=== PATIENT | male | born 1965 | race Caucasian/White ===

== ENCOUNTER 2024-09-06 10:47 | Outpatient (CLI) | payer OTHER, SELFPAY ==
--- NOTE | ~2024-09-06 | MR_ITS ---
MRI of the right hip Clinical history: Right hip osteonecrosis Technique: Coronal T1-weighted, T2-weighted, and proton-density fat-sat images, and axial T1-weighted and proton-density fat-sat images were acquired through the pelvis. Coronal T2-weighted images and c oronal, axial, and sagittal proton-density fat-sat images were acquired through the right hip. Findings: There is no acute fracture or definite avascular necrosis of either hip. 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 There is no focal subchondral reactive marrow edema at the s uperior aspect of the right femoral head. No definite insufficiency fracture evident. Small to modera te joint effusion is present probably reactive. There is mild/moderate diffuse chondral thinning of t he left hip joint, especially medially. Visualized musculature about the pelvis and right hip is unremarkable. No muscle atrophy or edema see n. Visualized tendons are intact. No soft tissue mass or fluid collection evident. IMPRESSION: Severe degenerative change of the right hip joint with probable subchondral reactive marrow edema at the superior aspect of the right femoral head. No definite AVN or subchondral insufficiency fracture. Mild to moderate right hip joint effusion, likely reactive. Mild to moderate degenerative change of the left hip joint. Reviewed, dictated and finalized at location M. IMPRESSION: Severe degenerative change of the right hip joint with probable subchondral bret ctive marrow edema at the superior aspect of the right femoral head. No definit e AVN or subchondral insufficiency fracture. Mild to moderate right hip joint effusion, likely reactive. Mild to moderate degenerative change of the left hip joint.
--- OUTSIDE RECORDS SUMMARY | 2024-09-06 11:26 | XMS_ITS | Encounter Summary ---
Author Organization [facility] Care Team Providers Care Clinical Data Associate Name Role Phone Zion Espinal MD Primary Care Provid er Zion Espinal MD Primary Care Provid er Zion Espinal MD Unavailable + [phone] Encounter Details Date Type Department Care Team (Latest Contact Info) Description 01/31/2017 Orders Only [facility] ProviderMarck MD [address] [place] [id number] Social History Tobacco Use Types Packs/Day Years Used Date Smoking Tobacco: Never Assessed Sex and Gender Information Value Date Recorded Sex Assigned at Not on file 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 us Historical Provider Final Res ult documented in this encounter Visit Diagnoses Not on filedocumented in this encounter Additional Health Concerns Infection Onset Date Last Indicated Resolved Time COVID: Suspected 08/11/2020 08/11/2020 08/13/2020 9:53 AM CDT COVID19 08/11/2020 08/11/2020 08/25/2020 3:05 AM CDT COVID: Recovered Comment:Added based on recent COVID infection. 08/25/2020 08/25/2020 12/23/2020 3:05 AM C DT COVID: Suspected 10/11/2021 10/11/2021 10/11/2021 3:01 PM CDT COVID: Suspected 08/05/2022 08/05/2022 08/05/2022 2:05 PM CDT documented as of this encounter Care Teams Clinical Data Associate Relationship Specialty Start Date End Date Zion Espinal MD [address] [place] [address] PCP - General Family Medicine 07/15/18 08/26/18 Zion Espinal MD [address] [facility] [place] [address] PCP - General Family Medicine 08/27/18 Zion Espinal MD [address] [place] [address] Family Medicine 08/27/18 04/04/19 documented as of this encounter
--- OUTSIDE RECORDS SUMMARY | 2024-09-06 11:26 | XMS_ITS | Encounter Summary ---
Author Organization [facility] Care Team Providers Care Electrical Contacts Adjuster Name Role Phone Zion Espinal MD Primary Care Provid er Zion Espinal MD Primary Care Provid er Zion Espinal MD Unavailable +- [phone] Encounter Details Date Type Department Care Team (Latest Contact Info) Description 06/17/2016 Orders Only [facility] Provider, MD Marck [address] [place] [id number] Social History Tobacco Use Types Packs/Day Years Used Date Smoking Tobacco: Never Assessed Sex and Gender Information Value Date Recorded Sex Assigned at Not on file 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 us Historical Provider Final Res ult * PROCEDURE - RESULT (06/17/2016 12:00 AM CDT) Narrative 06/17/2016 12:00 AM CDT Ordered by an unspecified provider. us Historical Provider Final Res ult * CARDIOLOGY REPORT (06/17/2016 12:00 AM CDT) Anatomical Region Laterality Modality Other Narrative 06/17/2016 12:00 AM CDT Ordered by an unspecified provider. Historical Provider [facility] [place] Final Result documented in this encounter Visit Diagnoses Not [...] documented as of this encounter Care Teams Electrical Contacts Adjuster Relationship Specialty Start Date End Date Zion Espinal MD [address] [place] [address] PCP - General Family Medicine 07/15/18 08/26/18 Zion Espinal MD [address] [place] [address] PCP - General Family Medicine 08/27/18 Zion Espinal MD [address] [place] [address] Family Medicine 08/27/18 04/04/19 documented as of this encounter
--- OUTSIDE RECORDS SUMMARY | 2024-09-06 11:26 | XMS_ITS | Referral Summary ---
Author Organization [address] Address [address] [address] Care Team Providers Care System Designer Name Role Phone Zion Espinal MD Primary Care Provid er Encounters Date Type Department Care Team Description 08/02/2024 9:02 AM CDT - 08/02/2024 9:54 AM CDT [facility] Emergency Department [address] [place] [address] Naveen Shah DO Muscle strain of right thigh (Primary Dx) Discharge Disposition: Discharge to home or self care 06/18/2024 Results Follow-Up [facility] [address] [phone] Maria Luisa Gore PA Drugs of Abuse Screen, Urine with Reflex Confirmation, Hemoglobin A1c, T3, free, Additional followed-up results: 7 06/18/2024 11:35 AM CDT [facility] [address] [place] [id number] Chronic right-sided thoracic back pain; Chronic right-sided low back pain without sciatica; Chronic midline low back pain without sciatica; High risk medication use; Type 2 diabetes mellitus with hyperlipidemia (HCC); Hypogonadism in male; Screening PSA (prostate specific antigen); Erectile dysfunction, unspecified erectile dysfunction type; Screening for blood disease; Screening, ischemic heart disease 06/18/2024 Letter (Out) [address] [phone] 06/18/2024 Letter (Out) [address] [phone] 06/17/2024 3:00 PM CDT Office Visit [address] [phone] Maria Luisa Gore PA Seborrheic keratosis (Primary Dx); Change in multiple nevi; Hypogonadism in male; Erectile dysfunction, unspecified erectile dysfunction type; Type 2 diabetes mellitus with hyperlipidemia (HCC); Hypoglycemia due to type 2 diabetes mellitus (HCC); Primary osteoarthritis of right knee; Mid back pain on right side; Chronic right-sided thoracic back pain; Chronic right-sided low back pain without sciatica; Chronic midline low back pain without sciatica; Chronic pain syndrome; High risk medication use; Screening for blood disease; Screening PSA (prostate specific antigen); Screening, ischemic heart disease from Last 3 Months Allergies Active Allergy Reactions Criticality Noted Date Comments Albuterol Other (See comments) Low 04/16/2022 Unable to urinate Atorvastatin Muscle pain Medium 06/01/2019 Carvedilol Dizziness Low 04/10/2009 Sildenafil Vision changes Medium 01/29/2023 Medications omeprazole 20 mg tablet,delayed release (DR/EC) 1 tablet (20 mg total) 2 (two) times a day Active cholecalciferol, vitamin D3, (VITAMIN D3 ORAL) Take 10,000 Units by mouth Active docosahexanoic acid/epa (FISH OIL ORAL) daily Active aspirin 81 mg chewable tablet 1 tablet (81 mg total) daily Active cetirizine (ZyrTEC) 10 mg tablet Take 1 tablet (10 mg total) by mouth daily Active bisacodyl EC (DULCOLAX EC) 5 mg EC tabletIndications: constipation Take 1 tablet (5 mg total) by mouth daily as needed for constipation Active fluticasone propionate (FLONASE) 50 mcg/actuation nasal spray SHAKE LIQUID AND USE 1 SPRAY IN EACH NOSTRIL TWICE DAILY 48 g 10/12/19 22 Active docusate sodium (COLACE) 100 mg capsule 1 capsule (100 mg total) 01/18/20 23 Active rosuvastatin (CRESTOR) 40 mg tablet Take 0.5 tablets (20 mg total) by mouth daily 45 tablet 3 08/07/19 24 Active testosterone enanthate, bulk, 100 % powder 0 04/01/20 24 Active amLODIPine-benazep riL (LOTREL 5-10) 5-10 mg per capsule TAKE 1 CAPSULE BY MOUTH DAILY 100 capsule 1 06/15/19 25 Active metFORMIN XR (GLUCOPHAGE XR) 500 mg 24 hr tabletIndications: Uncontrolled type 2 diabetes mellitus with hyperglycemia (HCC) TAKE 2 TABLETS BY MOUTH TWICE DAILY 360 tablet 06/15/19 25 Active testosterone cypionate (DEPO-TESTOTERONE) 100 mg/mL injectionIndicatio ns:Hypogonadism in male,High risk medication use Inject into the muscle as instructed every 14 (fourteen) days Active meloxicam (MOBIC) 15 mg tabletIndications: Primary osteoarthritis of right knee,Chronic right-sided thoracic back pain,Chronic right-sided low back pain without sciatica Take 1 tablet (15 mg total) by mouth daily 90 tablet 1 06/18/19 25 026 Active HYDROcodone-acetam inophen (NORCO) 5-325 mg per tabletIndications: Pain Take 1 tablet by mouth every 6 (six) hours as needed for pain 15 tablet 08/03/19 25 Active Active Problems Problem Noted Date Diagnosed Date Screening for colon cancer 12/25/2023 Family history of colon cancer 12/25/2023 Carpal tunnel syndrome 09/26/2023 Overview (09/26/2023): Oct 05, 2007 Entered By: SHILPI CHOWDHURY Comment: rt surgery for cts Hyperlipidemia 09/26/2023 Nevus, non-neoplastic 09/26/2023 Overview (09/26/2023): Oct 05, 2007 Entered By: SHILPI CHOWDHURY Comment: being followed by derm Nonallopathic lesion of upper extremities 2023 Osteoarthritis 09/26/2023 Overview (09/26/2023): Oct 05, 2007 Entered By: SHILPI CHOWDHURY Comment: lt shoulder ac joint Assessment & Plan (06/17/2024 7:08 PM CDT): Orders: meloxicam (MOBIC) 15 mg tablet; Take 1 tablet (15 mg total) by mouth daily Sensorineural hearing loss, bilateral 09/26/2023 Sensorineural hearing loss 09/26/2023 Overview (09/26/2023): NORMAL-TO MILD HF SnHL AD (3K,4K AND 8K Hz ONLY) // [id number]-GLHYOIRGCI SEVERE, NOTCH SHAPED HF SnHL ABOVE 1K Hz. LEFT EAR HEARING LOSS IS CONSISTENT WITH NOISE EXPOSURE -- SHOOTER'S EAR? ALL OTHERTEST RESULTS ARE WNL Tinnitus 09/26/2023 Primary hypertension 09/26/2023 Obstructive sleep apnea syndrome 09/26/2023 Overview (09/26/2023): Oct 05, 2007 Entered By: SHILPI CHOWDHURY Comment: uses cpap Controlled substance agreement signed 09/26/2023 Encounter for screening colonoscopy 02/04/2023 FHx: colon cancer 02/04/2023 Inadequately controlled diabetes mellitus 2021 PLMD (periodic limb movement disorder) Assessment & Plan (05/21/2024 9:12 AM CORPORATE SPECIALIST): Asymptomatic Assessment & Plan (05/08/2023 1:58 PM CORPORATE SPECIALIST): Asymptomatic Assessment & Plan (04/18/2022 9:12 AM CORPORATE SPECIALIST): Asymptomatic Assessment & Plan (04/19/2021 8:57 AM CORPORATE SPECIALIST): Currently asymptomatic Dyslipidemia 06/17/2016 Erectile dysfunction 06/17/2016 Assessment & Plan (06/17/2024 7:08 PM CDT): Orders: Comprehensive metabolic panel; Future PSA screen; Future Gastro-esophageal reflux disease without esophag itis 06/17/2016 Obesity, unspecified 06/17/2016 Testicular hypofunction 06/17/2016 Low back pain 04/17/2016 Assessment & Plan (06/17/2024 7:08 PM CDT): Orders: Drugs of Abuse Screen, Urine with Reflex Confirmation; Future Assessment & Plan (06/17/2024 7:08 PM CDT): Orders: HYDROcodone-acetaminophen (NORCO) 5-325 mg per tablet; Take 1 tablet by mouth every 6 (six) hours as needed for pain (spinal stenosis) for up to 5 days meloxicam (MOBIC) 15 mg tablet; Take 1 tablet (15 mg total) by mouth daily Drugs of Abuse Screen, Urine with Reflex Confirmation; Future ANIRUDH (obstructive sleep apnea) 04/17/2016 Overview (01/26/2020): uses a CPAP, uses everynight Assessment & Plan (05/21/2024 9:12 AM CORPORATE SPECIALIST): Due to ongoing symptoms, the patient will continue CPAP at 13 cm water pressure. I have ordered an F30 mask. [facility] adapt Assessment & Plan (05/08/2023 1:58 PM CORPORATE SPECIALIST): Due to continued symptoms, the patient will continue CPAP at 13 cm water pressure. I have ordered a full set of supplies. [facility] [place] adapt Assessment & Plan (04/18/2022 9:12 AM CORPORATE SPECIALIST): Will continue CPAP therapy at 13 cm water pressure. I did order a full set of supplies and a new nasal pillow mask without prongs. [facility] [place] adapt Assessment & Plan (04/19/2021 8:58 AM CORPORATE SPECIALIST): Patient will continue with CPAP therapy at 13 cm water pressure. Patient denied need for supplies. [facility] [place] company provider Plus. The patient was offered a mild sleep aid to see if this may help with his daytime fatigue by helping him to sleep more fully throughout the night, the patient declined at this time. Patient is benefitting from CPAP Benign essential hypertension 03/11/2016 Resolved Problems Problem Noted Date Diagnosed Date Resolved Date Cellulitis of left eyelid 03/11/2016 Immunizations Immunization Administration Dates Next Due Hep A, Adult 01/04/1998,02/16/1997 Influenza LAIV (Nasal) 04/17/2004 Influenza, Quadrivalent, Spl it, Preservative Free, Intramuscular 03/06/2021,01/26/2020 Influenza, Trivalent, IM (MDV) 01/22/2013 Influenza, Unspecified 02/09/2024(Deferr ed: Patient Refused),01/06/2024(Deferred: Patient decision),01/06/2024(Deferred: Patient decision),01/29/2023(Deferred: Patient Refused),01/05/2023(Deferred: Patient decision),01/05/2023(Deferred: Patient decision),01/05/2022(Deferred: Patient Refused),03/07/2013,12/30/2008, 008 Influenza, Whole 01/31/2003, 2,01/23/2001,03/21,01/16/1999,01/13/1998,02/16/1997 Meningococcal Polysaccharide (Menomune) 03/07/1998,12/03/1991 OPV 07/06/1984 PPD TEST 08/03/2001,06/30/2000 Smallpox 06/06/1983 Td, Unspecified 10/28/2005 Td, adsorbed 01/01/1995 Tdap 02/20/2021,10/28/2005 Typhoid Live 01/04/1998,12/26/1994 Yellow Fever 03/07/1998 ZOSTER Recombinant 05/23/2021(Deferred: Patient Refused) Social History Tobacco Use Types Packs/Day Years Used Date Smoking Tobacco: Former Cigarettes Smokeless Tobacco: Never Comments:quit in 1989 Alcohol Use Standard Drinks/Week Comments Yes 0 (1 standard drink = 0.6 oz pur e alcohol) AUDIT-C Answer Date Recorded Q1: How often do you have a drink containing alc ohol? 2-4 times a month 06/17/2024 Q2: How many drinks containi ng alcohol do you have on a typical day when you are drinking? 3 or 4 06/17/2024 Q3: How often do you have si x or more drinks on one occasion? Never 06/17/2024 PHQ-2 Answer Date Recorded PHQ-2 Total Score (If total score is 3 or more points, staff should administer the PHQ-9) 0 06/17/2024 Personal Safety Answer Date Recorded Have you ever been in or are you currently in a harmful physical or emotional relationship or is someone making you feel afraid or unsafe? Denies 08/02/2024 Sex and Gender Information Value Date Recorded Sex Assigned at Not on file Legal Sex Male 7:48 PM CORPORATE SPECIALIST Gender Identity Not on file Sexual Orientation Not on file Last Filed Vital Signs Vital Sign Reading Time Taken Comments Blood Pressure 128/82 08/02/2024 9:45 AM CDT Pulse 61 08/02/2024 9:45 AM CDT Temperature 36.7 C (98.1 F) 08/02/2024 8:17 AM CDT Respiratory Rate 20 08/02/2024 9:45 AM CDT Oxygen Saturation 95% 08/02/2024 8:17 AM CDT Inhaled Oxygen Concentration - - Weight 121.7 kg (268 lb 4.8 oz) 08/02/2024 8:17 AM CDT Height 180.3 cm (5' 11) 08/02/2024 8:17 AM CDT Body Mass Index 37.42 08/02/2024 8:17 AM CDT Plan of Treatment Not on file Procedures Procedure Name Priority Date/Time Associated Diagnosis Comments D-DIMER, QUANTITATIVE STAT 08/02/2024 9:04 AM CDT EGFR Routine 06/18/2024 11:41 AM CDT Erectile dysfunction, unspecified erectile dysfunction type Type 2 diabetes mellitus with hyperlipidemia (HCC) LIPID PANEL Routine 06/18/2024 11:41 AM CDT Screening, ischemic heart disease COMPREHENSIVE METABOLIC PANEL Routine 06/18/2024 11:41 AM CDT Erectile dysfunction, unspecified erectile dysfunction type Type 2 diabetes mellitus with hyperlipidemia (HCC) CBC WITHOUT DIFFERENTIAL Routine 06/18/2024 11:41 AM CDT Screening for blood disease PSA SCREEN Routine 06/18/2024 11:41 AM CDT Screening PSA (prostate specific antigen) Erectile dysfunction, unspecified erectile dysfunction type TESTOSTERONE, TOTAL AND FREE, SERUM Routine 06/18/2024 11:41 AM CDT Hypogonadism in male THYROID FUNCTION CASCADE Routine 06/18/2024 11:41 AM CDT Hypogonadism in male T3, FREE Routine 06/18/2024 11:41 AM CDT Hypogonadism in male HEMOGLOBIN A1C Routine 06/18/2024 11:41 AM CDT Type 2 diabetes mellitus with hyperlipidemia (HCC) DRUGS OF ABUSE SCREEN, URINE WITH REFLEX CONFIRMATION Routine 06/18/2024 11:41 AM CDT Chronic right-sided thoracic back pain Chronic right-sided low back pain without sciatica Chronic midline low back pain without sciatica High risk medication use COLONOSCOPY 01/06/2024 8:53 AM CDT HM DIABETES EYE EXAM Routine 08/21/2023 ALBUMIN CREATININE RATIO, URINE Routine 08/02/2022 10:59 AM CDT Benign essential hypertension Dyslipidemia Gastro-esophageal reflux disease without esophagitis Testicular hypofunction Inadequately controlled diabetes mellitus (HCC) PLMD (periodic limb movement disorder) HEPATITIS C ANTIBODY Routine 06/08/2021 9:45 AM CORPORATE SPECIALIST Encounter for screening for other viral diseases from Last 3 Months or Most Recently Relevant to Health Maintenance Results * D-dimer, quantitative (08/02/2024 9:04 AM CDT) D-Dimer <270 <=499 ng/mL FEU Comment: Interpretive data FDA approved the D-dimer, in conjunction with a low or moderate pretest probability score, to exclude venous thromboembolic events (VTE) (PE and DVT) in outpatients when the D-dimer result is < 500 ng/ml FEU. Evidence supports using an age-adjusted D-dimer cut-off for outpatients older than 50 (age x 10) to improve specificity without sacrificing sensitivity. Example: age 68, VTE cut-off 680 ng/ml FEU. References; Schoutscot HT et al. Brit Med J. 2013;346:f2492. Stephanie et al. Annals Int Med. 2015;163:701-11. Current interpretive data was last revised on 2019. Testing performed by: [address] [address] Blood 08/02/2024 9:04 AM CDT 08/02/2024 9:07 AM CDT us Naveen Shah DO LAB BLOOD ORDERABLES Final Res ult [facility] [address] [facility] Department [place] [address] * Drugs of Abuse Screen, Urine with Reflex Confirmation (06/18/2024 11:41 AM CDT) Pathologist [facility] Amphetamine, ur Not Detected CutOff 500ng/mL Comment: Interpretive Data - Amphetamines: Samples containing greater than 500 ng/mL d-methamphetamine or other cross-reacting amphetamine compounds are reported as positive. Amphetamine immunoassays are subject to significant false positive rates due to cross-reactivity of non-amphetamine drugs. Confirmatory testing required for definitive results. Current Interpretive Data was last reviewed 2022. Testing performed by: [address] [address] Barbiturates, ur Not Detected CutOff 200ng/mL [facility] Comment: Interpretive Data - Barbiturates: Samples containing greater than 200 ng/mL secobarbital or other cross-reacting barbiturate compounds are reported as positive. False positive and false negative results are possible. Confirmatory testing required for definitive results. Current Interpretive Data was last reviewed 2022. Testing performed by: [address] [address] Benzodiazepines, ur Not Detected CutOff 100ng/mL [facility] Comment: Interpretive Data - Benzodiazepines: Samples containing greater than 100 ng/mL nordiazepam or other cross-reacting compounds are reported as positive. False positive and false negative results are possible. Confirmatory testing required for definitive results. Current Interpretive Data was last reviewed 2022. Testing performed by: [address] [address] Cannabinoids, ur Not Detected CutOff 50 ng/mL [facility] Comment: Interpretive Data - Cannabinoids: Samples containing greater than 50 ng/mL delta-9 THC -COOH or other cross- reacting compounds are reported as positive. False positive and false negative results are possible. Confirmatory testing required for definitive results. Current Interpretive Data was last reviewed 2022. Testing performed by: [address] [address] Cocaine, ur Not Detected CutOff 150ng/mL [facility] Comment: Interpretive Data - Cocaine: Samples containing greater than 150 ng/mL benzoylecgonine or other cross- reacting compounds are reported as positive. False positive and false negative results are possible. Confirmatory testing required for definitive results. Current Interpretive Data was last reviewed 2022. Testing performed by: [address] [address] Fentanyl, Ur Not Detected Cutoff 1 ng/mL [facility] Comment: Interpretive Data - Fentanyl: Samples containing greater than 1 ng/mL fentanyl or other cross-reacting fentanyl compounds are reported as positive. False positive and false negative results are possible. Confirmatory testing required for definitive results. Current Interpretive Data was last reviewed 2022. Testing performed by: [address] [address] Methadone, ur Not Detected CutOff 300ng/mL [facility] Comment: Interpretive Data - Methadone: Samples containing greater than 300 ng/mL d,l-methadone or other cross-reacting compounds are reported as positive. False positive and false negative results are possible. Confirmatory testing required for definitive results. Current Interpretive Data was last reviewed 2022. Testing performed by: [address] [address] Opiates, ur Not Detected CutOff 300ng/mL [facility] Comment: Interpretive Data - Opiates: Samples containing greater than 300 ng/mL morphine or other cross-reacting compounds are reported as positive. False positive and false negative results are possible. Confirmatory testing required for definitive results. Current Interpretive Data was last reviewed 2022. Testing performed by: [address] [address] Oxycodone, ur Not Detected CutOff 100ng/mL [facility] Comment: Interpretive Data - Oxycodone: Samples containing greater than 100 ng/mL oxycodone or other cross-reacting compounds are reported as positive. False positive and false negative results are possible. Confirmatory testing required for definitive results. Current Interpretive Data was last reviewed 2022. Testing performed by: [address] [address] Phencyclidine, ur Not Detected CutOff 25 ng/mL [facility] Comment: Interpretive Data - Phencyclidine: Samples containing greater than 25 ng/mL phencyclidine or other cross-reacting compounds are reported as positive. False positive and false negative results are possible. Confirmatory testing required for definitive results. Current Interpretive Data was last reviewed 2022. Testing performed by: [address] [address] Urine Creatinine 42 mg/dL [facility] Comment: Interpretive Data Urine Creatinine: < 10 mg/dL is extremely dilute = or > 10 but < 20 mg/dL is dilute = or > 20 mg/dL is normal Current Interpretive Data was last revised on 2017. Testing performed by: [address] [address] Urine 06/18/2024 11:4 1 AM CDT 06/18/2024 11:49 AM CDT Narrative [facility] - 06/18/2024 12:15 PM CDT Drug of Abuse screening is performed by immunoassay for medical purposes only. This is not to be used for Pain Management purposes. If Detected, confirmation testing will be performed for Amphetamines, Cocaine, Fentanyl, Methadone, Opiates, Oxycodone or Phencyclidine. us Maria Luisa WHELAN LAB URINE ORDERABLES Final Resul t [facility] [address] [facility] Department [place] [address] * eGFR (06/18/2024 11:41 AM CDT) eGFR >90 >=60 mL/min/1. 73 m2 Comment: Interpretive Data Reference Interval Normal >/= 90 mL/min/1.73m2 Mildly decreased* 60 - 89 mL/min/1.73m2 Mildly to moderately decreased 45 - 59 mL/min/1.73m2 Moderately to severely decreased 30 - 44 mL/min/1.73m2 Severely decreased 15 - 29 mL/min/1.73m2 Kidney Failure < 15 mL/min/1.73m2 *Relative to young adult level Estimated glomerular filtration rate is determined by the 2020 CKD-EPI equation recommended by the National Kidney Foundation (A Unifying Approach to GFR Estimation: Recommendations of the NKF-ASK Task Force on Reassessing the Inclusion of Race in Diagnosing Kidney Disease, JASN 2020). The CKD-EPI equation should not be used for patients with unstable renal function and has not been validated in children and those over 70. Current interpretive data was last reviewed 2021. Testing performed by: [address] [address] Blood 06/18/2024 11:4 1 AM CDT 06/18/2024 1:07 PM CDT Maria Luisa WHELAN LAB BLOOD ORDERABLES Final Resul t Performing Organization Address [facility] Co de Phone Number [place] [id number] [facility] [place] [address] * Thyroid Function [place] (06/18/2024 11:41 AM CDT) Pathologist [facility] TSH 1.48 0.30 - 4.20 mcIUnit/mL Comment:Testing performed by : [address] [address] Blood 06/18/2024 11:4 1 AM CDT 06/18/2024 1:07 PM CDT Maria Luisa WHELAN LAB BLOOD ORDERABLES Final Resul t [address] [place] [address] * PSA screen (06/18/2024 11:41 AM CDT) PSA-Total 0.64 <=5.40 ng/mL Comment: Interpretive Data AGE SEX REFERENCE INTERVAL 0 minutes-150 years Female None 0 minutes-49 years Male None 50-59 years Male 0-3.90 60-69 years Male 0-5.40 70-79 years Male 0-6.20 80-150 years Male 0-6.20 The Michelle PSA Total assay procedure was used. Results from different manufacturers or methods may not be comparable. Serial testing should be performed using the same method. Current interpretive data last revised 21. Testing performed by: [address] [address] Blood 06/18/2024 11:4 1 AM CDT 06/18/2024 1:07 PM CDT us Maria Luisa WHELAN LAB BLOOD ORDERABLES Final Resul t [facility] [address] [facility] Department [place] [address] * CBC without differential (06/18/2024 11:41 AM CDT) Pathologist [facility] WBC 8.6 3.8 - 9.9 K/cumm Comment:Testing performed by : [address] [address] Hgb 15.9 13.0 - 17.5 g/dL [facility] ELIAS Comment:Testing performed by : [address] [address] Hct 48.8 38.9 - 50.3 % [facility] ELIAS Comment:Testing performed by : [address] [address] Plt 294 150 - 400 K/cumm [facility]E ELIAS Comment:Testing performed by : [address] [address] MPV 9.6 9.1 - 12.3 fL [facility] ELIAS Comment:Testing performed by : [address] [address] RBC 5.47 4.30 - 5.80 M/cumm [facility]E Comment:Testing performed by : [address], [address] MCV 89.2 81.3 - 96.4 fL [facility] Comment:Testing performed by : [address] [address] MCH 29.1 27.1 - 33.3 pg [facility] ELIAS Comment:Testing performed by : [address], [address] MCHC 32.6 32.3 - 35.7 g/dL [facility] Comment:Testing performed by : [address], [address] RDW CV 13.7 11.1 - 14.9 % [facility] Comment:Testing performed by : [address], [address] RDW SD 45.0 35.7 - 48.1 fL [facility] Comment:Testing performed by : [address], [address] NRBC abs 0.00 0.00 - 0.01 K/cumm [facility] Comment:Testing performed by : [address], [address] Blood 06/18/2024 11:4 1 AM CDT 06/18/2024 1:07 PM CDT us Maria Luisa WHELAN LAB BLOOD ORDERABLES Final Resul t [facility] [address] [facility] Department of Laboratories [place], [place] [id number] * (ABNORMAL) Testosterone, Total and Free, Serum (06/18/2024 11:41 AM CDT) [facility] Testosterone 753 240 - 950 ng/dL [place] ref Lab Comment: ADDITIONAL INFORMATION Testing performed by Liquid Chromatography-Tandem Mass Spectrometry (LC-MS/MS). This test was developed and its performance characteristics determined by [facility] in a manner consistent with CLIA requirements. This test has not been cleared or approved by the U.S. Food and Drug Administration. Test Performed by: [facility] [address] [place] [address] Boiler Coverer Helper: Sheng Lockett Ph.D.; CLIA# [id number] Testing performed by: [address] [address] Testosterone, free 31.8(H) 3.67 - 13.9 ng/dL [facility] Comment: ADDITIONAL INFORMATION This test was developed and its performance characteristics determined by [facility] in a manner consistent with CLIA requirements. This test has not been cleared or approved by the U.S. Food and Drug Administration. Testing performed by: [address] [address] Blood 06/18/2024 11:4 1 AM CDT 06/18/2024 1:06 PM CDT Maria Luisa WHELAN LAB BLOOD ORDERABLES Final Resul t Performing Organization Address [facility] de Phone Number [place] [address] [place] [address] [place] ref Lab * T3, free (06/18/2024 11:41 AM CDT) [facility] Free T3 3.1 2.0 - 4.4 pg/mL Blood 06/18/2024 11:4 1 AM CDT 06/18/2024 2:39 PM CDT Maria Luisa WHELAN LAB BLOOD ORDERABLES Final Resul t Performing Organization Address [facility] Co de Phone Number [place] [address] [place] [address] * (ABNORMAL) Hemoglobin A1c (06/18/2024 11:41 AM CDT) Hgb A1C 5.9(H) 4.0 - 5.6 % Comment:Testing performed by : [address] [address] Estimated Average Glucose 123 mg/dL CARRIE ELIAS Comment: The ADA recommends reporting an estimated Average Glucose (eAG) with all Hemoglobin A1c results using the equation derived from a study of 507 normal and diabetic adults. Minority populations were underrepresented and children were not included. (Diabetes Care 31:9438-4625, 2008). The eAG is not equivalent to a fasting glucose. Testing performed by: [address] [address] Blood 06/18/2024 11:4 1 AM CDT 06/18/2024 1:07 PM CDT us Maria Luisa WHELAN LAB BLOOD ORDERABLES Final Resul t CARRIE [address] [facility] Department [place] [address] * (ABNORMAL) Lipid panel (06/18/2024 11:41 AM CDT) Pathologist [facility] Cholesterol 145 30 - 199 mg/dL Comment: Interpretive Data Ages < or = 19 years Acceptable: <170 mg/dL Borderline high: 170-199 mg/dL High: >or= 200 mg/dL Ages > or = 20 years Desirable: <200 mg/dL Borderline high: 200-239 mg/dL High: >or= 240 mg/dL Literature References: 1. Expert Panel on Integrated Guidelines for Cardiovascular Health and Risk Reduction in Children and Adolescents. Pediatrics 2011;128:S213 2. NCEP Expert Panel. Circulation 2004;110:227 Current Interpretive Data was last revised on 2017. Testing performed by: [address] [address] Triglycerides 131 <=149 mg/dL CARRIE Comment: Interpretive Data Ages < or = 9 years Acceptable: <75 mg/dL Borderline high: 75-99 mg/dL High: >or= 100 mg/dL Ages 10 to 20 years Acceptable: <90 mg/dL Borderline high: 90-129 mg/dL High: >or= 130 mg/dL Ages > or = 20 years Desirable: <150 mg/dL Borderline high: 150-199 mg/dL High: 200-499 mg/dL Very high: >or= 499 mg/dL Literature References: 1. Expert Panel on Integrated Guidelines for Cardiovascular Health and Risk Reduction in Children and Adolescents. Pediatrics 2011;128:S213 2. NCEP Expert Panel. Circulation 2004;110:227 Current Interpretive Data was last revised on 2017. Testing performed by: [address] [address] HDL 31(L) >=40 mg/dL CARRIE Comment: Interpretive Data Ages < or = 19 years Acceptable: >45 mg/dL Borderline low: 40-45 mg/dL Low: <40 mg/dL Ages > or = 20 years Desirable: >or= 60 mg/dL Low: <40 mg/dL Literature References: 1. Expert Panel on Integrated Guidelines for Cardiovascular Health and Risk Reduction in Children and Adolescents. Pediatrics 2011;128:S213 2. NCEP Expert Panel. Circulation 2004;110:227 Current Interpretive Data was last revised on 2017. Testing performed by: [address] [address] LDL, calculated 90 <=129 mg/dL CARRIE Comment: Interpretive Data Ages < or = 19 years Acceptable: <110 mg/dL Borderline high: 110-129 mg/dL High: >or= 130 mg/dL Ages > or = 20 years Optimal: <100 mg/dL Near optimal: 100-129 mg/dL Borderline high: 130-159 mg/dL High: >160 mg/dL Calculated using the Lorenzo LDL-C estimating equation. This equation was implemented on 2023. Prior to this date LDL-C was estimated using the Friedewald equation. Literature References: 1. Expert Panel on Integrated Guidelines for Cardiovascular Health and Risk Reduction in Children and Adolescents. Pediatrics 2011;128:S213 2. NCEP Expert Panel. Circulation 2004;110:227 3. Lorenzo Ball et al. ISAMAR Cardiol. 2020 August 05;5(5):540-548. doi: 10.1001/jamacardio.2020.0013 Current Interpretive Data was last revised on 2023. Testing performed by: [address] [address] Non-HDL Cholesterol 114 mg/dL CARRIE ELIAS Comment: Interpretive Data Ages < or = 19 years Acceptable: <120 mg/dL Borderline high: 120-144 mg/dL High: >145 mg/dL Ages > or = 20 years When triglycerides are >200 mg/dL, Non-HDL cholesterol is a secondary target of therapy with treatment goals that are 30 mg/dL greater than the LDL cholesterol target. Literature References: 1. Expert Panel on Integrated Guidelines for Cardiovascular Health and Risk Reduction in Children and Adolescents. Pediatrics 2011;128:S213 2. NCEP Expert Panel. Circulation 2004;110:227 Current Interpretive Data was last revised on 2017. Testing performed by: [address] [address] Chol/HDL ratio 5 CARRIE ELIAS Comment:Testing performed by : [address] [address] Blood 06/18/2024 11:4 1 AM CDT 06/18/2024 1:07 PM CDT us Maria Luisa WHELAN LAB BLOOD ORDERABLES Final Resul t CARRIE [address] [facility] Department [place] [address] * Comprehensive metabolic panel (06/18/2024 11:41 AM CDT) Sodium 139 135 - 145 mmol/L Comment:Testing performed by : [address] [address] Potassium, pl 4.4 3.3 - 4.9 mmol/L CARRIE ELIAS Comment:Testing performed by : [address] [address] Chloride 103 97 - 110 mmol/L CARRIE ELIAS Comment:Testing performed by : [address] [address] CO2 24 22 - 32 mmol/L CARRIE ELIAS Comment:Testing performed by : [address] [address] Anion gap 12 2 - 15 mmol/L CARRIE Comment:Testing performed by : [address] [address] BUN 13 6 - 25 mg/dL CARRIE Comment:Testing performed by : [address], [place]., [address] Creatinine 0.80 0.80 - 1.30 mg/dL CARRIE Comment:Testing performed by : [address] [address] Glucose 97 70 - 199 mg/dL CARRIE Comment: Interpretive Data Fasting glucose >/= 126 mg/dl is diagnostic for diabetes. Fasting is defined as no caloric intake for at least 8 hours. Fasting glucose between 100 mg/dl to 125 mg/dl is diagnostic of prediabetes. In a patient with classic symptoms of hyperglycemia or hyperglycemic crisis, a random glucose >/= 200 mg/dl is diagnostic for diabetes. In the absence of unequivocal hyperglycemia, results should be confirmed by repeat testing. The classification and Diagnosis of Diabetes Diabetes Care 2021; 46: S19-S40. Current interpretive data was last revised 2022. Testing performed by: [address] [address] Calcium 9.5 8.5 - 10.3 mg/dL CARRIE Comment:Testing performed by : [address] [address] Bilirubin, total 0.4 0.1 - 1.2 mg/dL CARRIE Comment:Testing performed by : [address] [address] Protein, pl 7.9 6.5 - 8.5 g/dL CARRIE Comment:Testing performed by : [address] [address] Albumin 4.4 3.5 - 5.0 g/dL CARRIE Comment:Testing performed by : [address] [address] Alk phos 69 40 - 130 Units/L CARRIE Comment:Testing performed by : [address] [address] ALT 17 7 - 55 Units/L CARRIE ELIAS Comment:Testing performed by : [facility], [address] [place] [address], [address] AST 21 10 - 50 Units/L CARRIE ELIAS Comment:Testing performed by : [facility], [address] [place] [address]., [address] Blood 06/18/2024 11:4 1 AM CDT 06/18/2024 1:07 PM CDT us Maria Luisa WHELAN LAB BLOOD ORDERABLES Final Resul t CARRIE [address] [facility] Department [place] [address] * Colonoscopy (01/06/2024 8:53 AM CDT) Anatomical Region Laterality Modality Other Narrative Procedure Note Darren Lyle MD - 01/06/2024 8:53 AM CDT [facility] GI ENDOSCOPY Patient Name: Saul Ballard Procedure Date: 01/06/2024 8:53 AM Date of : 1965 Admit Type: Outpatient Age: 58 Gender: Male Attending MD: Darren Lyle M.D. Room: [facility] ENDOSCOPY ROOM 06 Note Status: Finalized Procedure: Colonoscopy Indications: Screening for colorectal malignant neoplasm, Family history of colon cancer in a first-degree relative before age 60 years Referring MD: Providers: Darren Lyle M.D. Medicines: Monitored Anesthesia Care Complications: No immediate complications. Estimated Blood Loss: Estimated blood loss: none. Procedure: Pre-Anesthesia Assessment: - Prior to the procedure, a History and Physicalwas performed, and patient medications and allergieswere reviewed. The risks and benefits of the procedureand the sedation options and risks were discussed withthe patient. All questions were answered and informed consent was obtained. Patient identification and proposed procedure were verified. After reviewingthe risks and benefits, the patient was deemed in satisfactory condition to undergo the procedure.The anesthesia plan was to use monitored anesthesiacare (MAC). Immediately prior to administration of medications, the patient was re-assessed foradequacy to receive sedatives. The heart rate, respiratory rate, oxygen saturations, blood pressure, adequacyof pulmonary ventilation, and response to care were monitored throughout the procedure. The physical status of the patient was re-assessed after the procedure. The benefits, risks and alternatives of theprocedure and sedation were discussed and informed consentwas obtained. All questions were answered. Please referto the signed informed consent document in the medical record. The scope was passed under direct vision.The [id number] colonoscope was introduced through theanus and advanced to the cecum, identified byappendiceal orifice and ileocecal valve. The colonoscopy was performed without difficulty. The patient tolerated the procedure well. The quality of the bowel preparation was adequate. Scope withdrawal time was20 minutes. Prep was administered in a split dose. Findings: The perianal and digital rectal examinations were normal. A diminutive polyp was found in the cecum. The polyp was removed witha cold biopsy forceps. Resection and retrieval were complete. A 20 mm polyp was found in the ascending colon. The polyp wassessile. The polyp was removed with a hot snare. Resection and retrieval were complete. A 10 mm polyp was found in the transverse colon. The polyp wassessile. The polyp was removed with a hot snare. Resection and retrieval were complete. Two sessile polyps were found in the splenic flexure. The polyps were7 mm in size. These polyps were removed with a hot snare. Resection and retrieval were complete. A diminutive polyp was found in the transverse colon. The polyp was removed with a cold biopsy forceps. Resection and retrieval were complete. Three sessile polyps were found in the sigmoid colon. The polyps were6 to 8 mm in size. These polyps were removed with a hot snare.Resection and retrieval were complete. Two polyps were found in the sigmoid colon. The polyps werediminutive in size. These polyps were removed with a cold biopsy forceps.Resection and retrieval were complete. Multiple medium-mouthed diverticula were found in the sigmoidcolon. Non-bleeding internal hemorrhoids were found during retroflexion. The hemorrhoids were small. The exam was otherwise without abnormality. Impression: - One diminutive polyp in the cecum, removed with a cold biopsy forceps. Resected and retrieved. - One 20 mm polyp in the ascending colon, removedwith a hot snare. Resected and retrieved. - One 10 mm polyp in the transverse colon, removed with a hot snare. Resected and retrieved. - Two 7 mm polyps at the splenic flexure, removedwith a hot snare. Resected and retrieved. - One diminutive polyp in the transverse colon, removed with a cold biopsy forceps. Resected and retrieved. - Three 6 to 8 mm polyps in the sigmoid colon,removed with a hot snare. Resected and retrieved. - Two diminutive polyps in the sigmoid colon,removed with a cold biopsy forceps. Resected andretrieved. - Diverticulosis in the sigmoid colon. - Non-bleeding internal hemorrhoids. - The examination was otherwise normal. Recommendation: - Patient has a contact number available for emergencies. The signs and symptoms of potential delayed complications were discussed with thepatient. Return to normal activities tomorrow. Written discharge instructions were provided to thepatient. - High fiber diet. - Continue present medications. - Await pathology results. - Repeat colonoscopy in 1 year for surveillance. Darren Lyle M.D. Darren Lyle M.D. 01/06/2024 9:31:00 AM . Number of Addenda: 0 Note Initiated On: 01/06/2024 8:53 AM Recognized by the [employer] for promoting quality in endoscopy Darren Lyle MD ENDOSCOPY PROCEDURES Final Resul t * DIABETES EYE EXAM (08/21/2023) Pathologist [facility] SCRIBED DIABETIC DILATED EYE EXAM Normal Historical Provider HEALTH MAINTENANCE Final Result * (ABNORMAL) Albumin Creatinine Ratio, Urine (08/02/2022 10:59 AM CDT) [facility] Albumin Ur 59.6 mg/L CARRIE ELIAS Comment: Interpretive Data No reference range established. Current interpretive data was last revised 2018. Testing performed by: [address] [address] Creatinine Ur 64.9 mg/dL CARRIE Comment: Interpretive Data No reference range established. Current interpretive data was last revised 2018. Testing performed by: [address] [address] Albumin Creatinine Ratio, Ur 92(H) 1 - 29 mg/g CARRIE Comment:Testing performed by : [address] [address] Urine 08/02/2022 10:5 9 AM CDT 08/02/2022 11:20 AM CDT Eva WHELAN LAB URINE ORDERABLES Final Res ult [facility] [address] [facility] [place] [address] * Hepatitis C antibody (06/08/2021 9:45 AM CORPORATE SPECIALIST) [facility] Hep C Ab Nonreactive Nonreactive CARRIE ELIAS Comment: Interpretive Data Nonreactive: Antibodies to HCV not detected. Does NOT exclude the possibility of recent exposure to HCV. Equivocal: Equivocal for HCV antibodies. Supplemental molecular testing will be automatically performed to determine infection status in accordance with current CDC screening recommendations. Reactive: Positive for HCV antibodies. This may represent current or past HCV infection. Supplemental molecular testing will be automatically performed to determine current infection status in accordance with current CDC screening recommendations. Interpretive data was last revised on 2019. Blood 06/08/2021 9:45 AM CORPORATE SPECIALIST 06/08/2021 12:38 PM CORPORATE SPECIALIST Zion Espinal MD LAB MICROBIOLOGY - G ENERAL ORDERABLES Final Result [facility] [address] [facility] [place] [address] from Last 3 Months or Most Recently Relevant to Health Maintenance Insurance [facility] M[facility] Care Teams System Designer Relationship Specialty Start Date End Date Zion Espinal MD [address] [place], [place] [id number] PCP - General Family Medicine 08/27/18
--- OUTSIDE RECORDS SUMMARY | 2024-09-06 11:26 | XMS_ITS | Encounter Summary ---
Author Organization [facility] Facility Care Team Providers Care Regulatory Consultant Name Role Phone Zion Espinal MD Primary Care Provid er Zion Espinal MD Primary Care Provid er Zion Espinal MD Unavailable + [phone] Encounter Details Date Type Department Care Team (Latest Contact Info) Description 01/30/2017 Orders Only [facility] CLINCONV ProviderMarck MD [address] [place] [id number] Social History Tobacco Use Types Packs/Day Years Used Date Smoking Tobacco: Never Assessed Sex and Gender Information Value Date Recorded Sex Assigned at Not on file Legal Sex Male 7:48 PM [employer] Gender Identity Not on file Sexual Orientation Not on file documented as of this encounter Plan of Treatment Not on file documented as of this encounter Procedures Procedure Name Priority Date/Time Associated Diagnosis Comments COLONOSCOPY - SCAN 01/30/2017 12 :00 AM CDT documented in this encounter Results * COLONOSCOPY - SCAN (01/30/2017 12:00 AM CDT) Narrative 01/30/2017 12:00 AM CDT Ordered by an unspecified [...] documented as of this encounter Care Teams Regulatory Consultant Relationship Specialty Start Date End Date Zion Espinal MD [address] [place] [address] PCP - General Family Medicine 07/15/18 08/26/18 Zion Espinal MD [address] [facility] [place] [address] PCP - General Family Medicine 08/27/18 Zion Espinal MD [address] [facility] [place] [place] [address] Family Medicine 08/27/18 04/04/19 documented as of this encounter
--- OUTSIDE RECORDS SUMMARY | 2024-09-06 11:26 | XMS_ITS | Clinical Summary ---
Author Organization [address] Address [address] [place] [phone] Care Team Providers Care Appeals Coordinator Name Role Phone Zion Espinal MD Primary Care Provid er Allergies Active Allergy Reactions Criticality Noted Date [...] AD (3K,4K AND 8K Hz ONLY) // [id number] SEVERE, NOTCH SHAPED HF SnHL ABOVE 1K [...] disorder) Assessment & Plan (05/21/2024 9:12 AM CREDIT INVESTIGATOR): Asymptomatic Assessment & Plan (05/08/2023 1:58 PM CREDIT INVESTIGATOR): Asymptomatic Assessment & Plan (04/18/2022 9:12 AM CREDIT INVESTIGATOR): Asymptomatic Assessment & Plan (04/19/2021 8:57 AM CREDIT INVESTIGATOR): Currently asymptomatic Dyslipidemia 06/17/2016 Erectile dysfunction 06/17/2016 [...] everynight Assessment & Plan (05/21/2024 9:12 AM CREDIT INVESTIGATOR): Due to ongoing symptoms, the patient will continue CPAP at 13 cm water pressure. I have ordered an F30 mask. DME adapt Assessment & Plan (05/08/2023 1:58 PM CREDIT INVESTIGATOR): Due to continued symptoms, the patient will continue CPAP at 13 cm water pressure. I have ordered a full set of supplies. DME adapt Assessment & Plan (04/18/2022 9:12 AM CREDIT INVESTIGATOR): Will continue CPAP therapy at 13 cm water pressure. I did order a full set of supplies and a new nasal pillow mask without prongs. [facility] adapt Assessment & Plan (04/19/2021 8:58 AM CREDIT INVESTIGATOR): Patient will continue with CPAP therapy at 13 cm water pressure. Patient denied need for supplies. DME company provider Plus. The patient was offered a mild sleep aid to see if this may help with his daytime fatigue by helping him to sleep more fully throughout the night, the patient declined at this time. Patient is benefitting from CPAP Benign essential hypertension 03/11/2016 Resolved Problems Problem Noted Date Diagnosed Date Resolved Date Cellulitis of left eyelid 03/11/2016 Encounters Date Type Department Care Team Description 08/02/2024 9:02 AM CDT - 08/02/2024 9:[address] [facility] Emergency Department [address] [place] [address] Naveen Shah DO Muscle strain of right thigh (Primary Dx) Discharge Disposition: Discharge to home or self care 06/18/2024 11:[address] [facility] Lab [address] [place] [address] Chronic right-sided thoracic back pain; Chronic right-sided low back pain without sciatica; Chronic midline low back pain without sciatica; High risk medication use; Type 2 diabetes mellitus with hyperlipidemia (HCC); Hypogonadism in male; Screening PSA (prostate specific antigen); Erectile dysfunction, unspecified erectile dysfunction type; Screening for blood disease; Screening, ischemic heart disease 06/18/2024 Results Follow-Up [address] [phone] Maria Luisa Gore PA Drugs of Abuse Screen, Urine with Reflex Confirmation, Hemoglobin A1c, T3, free, Additional followed-up results: 7 06/18/2024 Letter (Out) [address] [phone] 06/18/2024 Letter (Out) [address] [phone] 06/17/2024 3:00 PM CDT Office Visit [address] [phone] Maria Luisa Gore PA Seborrheic keratosis (Primary [...] ischemic heart disease from Last 3 Months Immunizations Immunization Administration Dates Next Due Hep [...] Fever 03/07/1998 ZOSTER Recombinant 05/23/2021(Deferred: Patient Refused) Surgical History Surgery Date Site/Laterality Comments SHOULDER SURGERY Bilateral VASECTOMY 1993 FLUORO GUIDED INJECTION SHOULDER LEFT 04/05/2016 Lef t COLONOSCOPY Medical History Medical History Date Comments Hypertension GERD (gastroesophageal reflux disease) Diabetes mellitus (HCC) Colon polyp Diverticulosis Hyperlipidemia Type 2 diabetes mellitus (HCC) Family History Medical History Relation Name Comments Cancer Father colon Colon cancer Father Cancer Mother gall bladder Cancer Paternal Grandfather bone Relation Name Status Comments Father Mother Paternal Grandfather Social History Tobacco Use Types Packs/Day Years [...] on file Legal Sex Male 7:48 PM CREDIT INVESTIGATOR Gender Identity Not on file Sexual Orientation Not on file Obstetrics History Last Filed Vital Signs Vital Sign Reading [...] 08/02/2024 8:17 AM CDT Plan of Treatment Health Maintenance Due Date Last Done Comments Hepatitis B Screening 12/07/1981 Pneumococcal vaccine <65 (1 of 2 - PCV) 12/07/1982 Zoster Vaccine (1 of 2) 12/07/2013 Regular Well Visit/Exam 18-64 05/23/2022 05/23/2021, 05/23/2021 Albumin Creatinine Ratio, Urine 08/03/2023 3, 06/08/2021 Dilated Eye Exam 08/20/2024 08/21/2023, , 08/22/2021 Influenza Vaccine (Season Ended) 2024 03/06/2021, 01/26/2020, 03/07/2013, Additional history exists Hemoglobin A1C 12/19/2024 06/18/2024, 070 05/2023, 08/02/2022, Additional history exists Colon Cancer Screening-Colonoscopy 01/05/2025 01/06/2024, 01/23/2017 Foot Exam 02/08/2025 02/09/2024, 07/2023, 01/29/2023, Additional history exists Depression Screening 06/17/2025 06/17/2024, 09/26/2023, 05/14/2022, Additional history exists Lipid Panel 06/18/2025 06/18/2024, 0 05/2023, 08/02/2022, Additional history exists eGFR 06/18/2025 06/18/2024, 06/2023, 08/02/2022, Additional history exists Prostate Cancer Screening-PSA 06/18/2026, 02/09/2024, 10/25/2021, Additional history exists DTaP/Tdap/Td Vaccine (3 - Td or Tdap) 02/20/2031 02/20/2021, 10/28/2005, 10/28/2005, Additional history exists Covid-19 Vaccine Discontinued 12/12/2020, 11/07/2020 Hepatitis C Screening Completed 06/08/2021 Colon Cancer Screening-CT Colonography Discontinued 01/06/2024, 01/23/2017 Colon Cancer Screening-DNA Stool Discontinued 01/06/20, 01/23/2017 Colon Cancer Screening-FIT Discontinued 01/06/2024, Colon Cancer Screening-Sigmoidoscopy Discontinued 01/06/2024, 01/23/2017 Procedures Procedure Name Priority Date/Time Associated Diagnosis [...] HEPATITIS C ANTIBODY Routine 06/08/2021 9:45 AM CREDIT INVESTIGATOR Encounter for screening for other viral diseases [...] 68, VTE cut-off 680 ng/ml FEU. References; Humphrey HT et al. Brit Med J. 2013;346:f2492. Stephanie et al. Annals Int Med. 2015;163:701-11. Current interpretive data was last revised on 2019. Testing performed by: [address] [address] Blood 08/02/2024 9:04 AM CDT 08/02/2024 9:07 AM CDT us Naveen Shah DO LAB BLOOD ORDERABLES Final Res ult [facility] [address] [facility] [place] [address] * Drugs of Abuse Screen, Urine with Reflex Confirmation (06/18/2024 11:41 AM CDT) Amphetamine, ur Not Detected CutOff 500ng/mL Comment: Interpretive Data - Amphetamines: Samples containing greater than 500 ng/mL d-methamphetamine or other cross-reacting amphetamine compounds are reported as positive. Amphetamine immunoassays are subject to significant false positive rates due to cross-reactivity of non-amphetamine drugs. Confirmatory testing required for definitive results. Current Interpretive Data was last reviewed 2022. Testing performed by: [address] [address] Barbiturates, ur Not Detected CutOff 200ng/mL CARRIE ELIAS Comment: Interpretive Data - Barbiturates: Samples containing greater than 200 ng/mL secobarbital or other cross-reacting barbiturate compounds are reported as positive. False positive and false negative results are possible. Confirmatory testing required for definitive results. Current Interpretive Data was last reviewed 2022. Testing performed by: [address] [address] Benzodiazepines, ur Not Detected CutOff 100ng/mL [facility] Comment: Interpretive Data - Benzodiazepines: Samples containing greater than 100 ng/mL nordiazepam or other cross-reacting compounds are reported as positive. False positive and false negative results are possible. Confirmatory testing required for definitive results. Current Interpretive Data was last reviewed 2022. Testing performed by: [address] [address] Cannabinoids, ur Not Detected CutOff 50 ng/mL [facility] Comment: Interpretive Data - Cannabinoids: Samples containing greater than 50 ng/mL delta-9 THC -COOH or other cross- reacting compounds are reported as positive. False positive and false negative results are possible. Confirmatory testing required for definitive results. Current Interpretive Data was last reviewed 2022. Testing performed by: [address] [address] Cocaine, ur Not Detected CutOff 150ng/mL [facility] Comment: Interpretive Data - Cocaine: Samples containing greater than 150 ng/mL benzoylecgonine or other cross- reacting compounds are reported as positive. False positive and false negative results are possible. Confirmatory testing required for definitive results. Current Interpretive Data was last reviewed 2022. Testing performed by: [address] [address] Fentanyl, Ur Not Detected Cutoff 1 ng/mL [facility] Comment: Interpretive Data - Fentanyl: Samples containing greater than 1 ng/mL fentanyl or other cross-reacting fentanyl compounds are reported as positive. False positive and false negative results are possible. Confirmatory testing required for definitive results. Current Interpretive Data was last reviewed 2022. Testing performed by: [address] [address] Methadone, ur Not Detected CutOff 300ng/mL [facility] Comment: Interpretive Data - Methadone: Samples containing greater than 300 ng/mL d,l-methadone or other cross-reacting compounds are reported as positive. False positive and false negative results are possible. Confirmatory testing required for definitive results. Current Interpretive Data was last reviewed 2022. Testing performed by: [address] [address] Opiates, ur Not Detected CutOff 300ng/mL CARRIE Comment: Interpretive Data - Opiates: Samples containing greater than 300 ng/mL morphine or other cross-reacting compounds are reported as positive. False positive and false negative results are possible. Confirmatory testing required for definitive results. Current Interpretive Data was last reviewed 2022. Testing performed by: [address] [address] Oxycodone, ur Not Detected CutOff 100ng/mL [facility]E Comment: Interpretive Data - Oxycodone: Samples containing greater than 100 ng/mL oxycodone or other cross-reacting compounds are reported as positive. False positive and false negative results are possible. Confirmatory testing required for definitive results. Current Interpretive Data was last reviewed 2022. Testing performed by: [address] [address] Phencyclidine, ur Not Detected CutOff 25 ng/mL CARRIE Comment: Interpretive Data - Phencyclidine: Samples containing greater than 25 ng/mL phencyclidine or other cross-reacting compounds are reported as positive. False positive and false negative results are possible. Confirmatory testing required for definitive results. Current Interpretive Data was last reviewed 2022. Testing performed by: [address] [address] Urine Creatinine 42 mg/dL CARRIE Comment: Interpretive Data Urine Creatinine: < 10 mg/dL is extremely dilute = or > 10 but < 20 mg/dL is dilute = or > 20 mg/dL is normal Current Interpretive Data was last revised on 2017. Testing performed by: [address] [address] Urine 06/18/2024 11:4 1 AM CDT 06/18/2024 11:49 AM CDT [facility] CARRIE - 06/18/2024 12:15 PM CDT Drug of Abuse screening is performed by immunoassay for medical purposes only. This is not to be used for Pain Management purposes. If Detected, confirmation testing will be performed for Amphetamines, Cocaine, Fentanyl, Methadone, Opiates, Oxycodone or Phencyclidine. Maria Luisa WHELAN LAB URINE ORDERABLES Final Resul t Performing Organization Address [facility] de Phone Number CARRIE [address] [place] [address] * eGFR (06/18/2024 11:41 AM CDT) eGFR [...] was last reviewed 2021. Testing performed by: [facility], [address] [place] [address]., [address] Blood 06/18/2024 11:4 1 AM CDT 06/18/2024 1:07 PM CDT Maria Luisa WHELAN LAB BLOOD ORDERABLES Final Resul t Performing Organization Address [facility] Co de Phone Number CARRIE [facility] [place] [address] * Thyroid Function [place] (06/18/2024 11:41 AM CDT) TSH 1.48 0.30 - 4.20 mcIUnit/mL Comment:Testing performed by : [address] [address] Blood 06/18/2024 11:4 1 AM CDT 06/18/2024 1:07 PM CDT Maria Luisa WHELAN LAB BLOOD ORDERABLES Final Resul t Performing Organization Address [facility] Co de Phone Number [address] [address] * PSA screen (06/18/2024 11:41 AM CDT) [...] data last revised 21. Testing performed by: [address] [address] Blood 06/18/2024 11:4 1 AM CDT 06/18/2024 1:07 PM CDT Maria Luisa WHELAN LAB BLOOD ORDERABLES Final Resul t Performing Organization Address [facility] Co de Phone Number [place] [address] [facility] [place] [address] * CBC without differential (06/18/2024 11:41 AM CDT) WBC 8.6 3.8 - 9.9 K/cumm Comment:Testing performed by : [address] [address] Hgb 15.9 13.0 - 17.5 g/dL CARRIE Comment:Testing performed by : [address] [address] Hct 48.8 38.9 - 50.3 % CARRIE Comment:Testing performed by : [address] [address] Plt 294 150 - 400 K/cumm CARRIE Comment:Testing performed by : [address] [address] MPV 9.6 9.1 - 12.3 fL CARRIE Comment:Testing performed by : [address], [address] RBC 5.47 4.30 - 5.80 M/cumm CARRIE Comment:Testing performed by : [address], [address] MCV 89.2 81.3 - 96.4 fL CARRIE Comment:Testing performed by : [address] [address] MCH 29.1 27.1 - 33.3 pg CARRIE Comment:Testing performed by : [address] [address] MCHC 32.6 32.3 - 35.7 g/dL CARRIE Comment:Testing performed by : [address], [address] RDW CV 13.7 11.1 - 14.9 % CARRIE Comment:Testing performed by : [address] [address] RDW SD 45.0 35.7 - 48.1 fL CARRIE Comment:Testing performed by : [address] [address] NRBC abs 0.00 0.00 - 0.01 K/cumm CARRIE Comment:Testing performed by : [address] [address] Blood 06/18/2024 11:4 1 AM CDT 06/18/2024 1:07 PM CDT us Maria Luisa WHELAN LAB BLOOD ORDERABLES Final Resul t CERNER [address] [place] [address] * (ABNORMAL) Testosterone, Total and Free, Serum (06/18/2024 11:41 AM CDT) [facility] Testosterone 753 240 - 950 ng/dL [facility] Comment: ADDITIONAL INFORMATION Testing performed by Liquid Chromatography-Tandem Mass Spectrometry (LC-MS/MS). This test was developed and its performance characteristics determined by [facility] in a manner consistent with CLIA requirements. This test has not been cleared or approved by the U.S. Food and Drug Administration. Test Performed by: [address] [address] Lead Software Tester: Sheng Lockett Ph.D.; CLIA# [id number] Testing performed by: [facility], [address] [place] [address]., [address] Testosterone, free 31.8(H) 3.67 - 13.9 ng/dL CARRIE Comment: ADDITIONAL INFORMATION This test was developed and its performance characteristics determined by [facility] in a manner consistent with CLIA requirements. This test has not been cleared or approved by the U.S. Food and Drug Administration. Testing performed by: [facility], [address] [place] [address]., [address] Blood 06/18/2024 11:4 1 AM CDT 06/18/2024 1:06 PM CDT us Maria Luisa WHELAN LAB BLOOD ORDERABLES Final Resul t CARRIE [address] [place] [address] [facility] * T3, free (06/18/2024 11:41 AM CDT) [facility] Free T3 3.1 2.0 - 4.4 pg/mL Blood 06/18/2024 11:4 1 AM CDT 06/18/2024 2:39 PM CDT Maria Luisa WHELAN LAB BLOOD ORDERABLES Final Resul t Performing Organization Address [facility] de Phone Number CHATA[address] [address] * (ABNORMAL) Hemoglobin A1c (06/18/2024 11:41 AM CDT) Hgb A1C 5.9(H) 4.0 - 5.6 % Comment:Testing performed by : [address] [address] Estimated Average Glucose 123 mg/dL [facility] Comment: The ADA recommends reporting an estimated Average Glucose (eAG) with all Hemoglobin A1c results using the equation derived from a study of 507 normal and diabetic adults. Minority populations were underrepresented and children were not included. (Diabetes Care 31:9486-4870, 2008). The eAG is not equivalent to a fasting glucose. Testing performed by: [address] [address] Blood 06/18/2024 11:4 1 AM CDT 06/18/2024 1:07 PM CDT Maria Luisa WHELAN LAB BLOOD ORDERABLES Final Resul t Performing Organization Address [facility] de Phone Number [place] [address] [place] [address] * (ABNORMAL) Lipid panel (06/18/2024 11:41 AM CDT) Cholesterol 145 30 - 199 mg/dL Comment: [...] last revised on 2017. Testing performed by: [address] [address] Triglycerides 131 <=149 mg/dL CARRIE Comment: Interpretive [...] last revised on 2017. Testing performed by: [address] [address] HDL 31(L) >=40 mg/dL CARRIE Comment: Interpretive [...] last revised on 2017. Testing performed by: [address] [address] LDL, calculated 90 <=129 mg/dL CARRIE Comment: Interpretive Data Ages < or = 19 years Acceptable: <110 mg/dL Borderline high: 110-129 mg/dL High: >or= 130 mg/dL Ages > or = 20 years Optimal: <100 mg/dL Near optimal: 100-129 mg/dL Borderline high: 130-159 mg/dL High: >160 mg/dL Calculated using the Ventura LDL-C estimating equation. This equation was implemented on 2023. Prior to this date LDL-C was estimated using the Friedewald equation. Literature References: 1. Expert Panel on Integrated Guidelines for Cardiovascular Health and Risk Reduction in Children and Adolescents. Pediatrics 2011;128:S213 2. NCEP Expert Panel. Circulation 2004;110:227 3. Lorenzo M et al. ISAMAR Cardiol. 2019August 05;5(5):540-548. doi: 10.1001/jamacardio.2020.0013 Current Interpretive Data was last revised on 2023. Testing performed by: [address] [address] Non-HDL Cholesterol 114 mg/dL CARRIE ELIAS Comment: [...] last revised on 2017. Testing performed by: [address] [address] Chol/HDL ratio 5 CARRIE ELIAS Comment:Testing performed by : [address] [address] Blood 06/18/2024 11:4 1 AM CDT 06/18/2024 1:07 PM CDT us Maria Luisa WHELAN LAB BLOOD ORDERABLES Final Resul t CARRIE ELIAS [address] [facility] Department [place] [address] * Comprehensive metabolic panel (06/18/2024 11:41 AM CDT) [facility] Sodium 139 135 - 145 mmol/L Comment:Testing performed by : [address] [address] Potassium, pl 4.4 3.3 - 4.9 mmol/L [facility] Comment:Testing performed by : [address] [address] Chloride 103 97 - 110 mmol/L [facility] Comment:Testing performed by : [address], [place]., [address] CO2 24 22 - 32 mmol/L [facility] Comment:Testing performed by : [address], [place]., [address] Anion gap 12 2 - 15 mmol/L [facility] Comment:Testing performed by : [address], [place]., [address] BUN 13 6 - 25 mg/dL [facility] Comment:Testing performed by : [address], [place]., [address] Creatinine 0.80 0.80 - 1.30 mg/dL [facility] Comment:Testing performed by : [address] [address] Glucose 97 70 - 199 mg/dL [facility] Comment: Interpretive Data Fasting glucose >/= 126 [...] classification and Diagnosis of Diabetes Diabetes Care 202; 46: S19-S40. Current interpretive data was last revised 2022. Testing performed by: [address] [address] Calcium 9.5 8.5 - 10.3 mg/dL [facility] Comment:Testing performed by : [address] [address] Bilirubin, total 0.4 0.1 - 1.2 mg/dL [facility] Comment:Testing performed by : [address], [place]., [address] Protein, pl 7.9 6.5 - 8.5 g/dL CARRIE ELIAS Comment:Testing performed by : [address] [address] Albumin 4.4 3.5 - 5.0 g/dL CARRIE Comment:Testing performed by : [address] [address] Alk phos 69 40 - 130 Units/L CARRIE Comment:Testing performed by : [address] [address] ALT 17 7 - 55 Units/L CARRIE Comment:Testing performed by : [address] [address] AST 21 10 - 50 Units/L CARRIE Comment:Testing performed by : [address] [address] Blood 06/18/2024 11:4 1 AM CDT 06/18/2024 1:07 PM CDT us Maria Luisa WHELAN LAB BLOOD ORDERABLES Final Resul t [facility] [address] [facility] Department of Laboratories [place], [place] [id number] * Colonoscopy (01/06/2024 8:53 AM CDT) Anatomical Region Laterality Modality Other Narrative Procedure Note Darren Lyle MD - 01/06/2024 8:53 AM CDT [facility] ENDOSCOPY Patient Name: Saul Ballard Procedure Date: 01/06/2024 8:53 AM Date of : 1965 Admit Type: Outpatient Age: 58 Gender: Male Attending MD: Darren Lyle M.D. Room: [facility] ENDOSCOPY ROOM 06 Note Status: Finalized Procedure: [...] The scope was passed under direct vision.The [id number] colonoscope was introduced through theanus and advanced [...] On: 01/06/2024 8:53 AM Recognized by the [place] [employer] for promoting quality in endoscopy Darren Lyle MD ENDOSCOPY PROCEDURES Final Resul t * DIABETES EYE EXAM (08/21/2023) SCRIBED DIABETIC DILATED EYE EXAM Normal Historical Provider HEALTH MAINTENANCE Final Result * (ABNORMAL) Albumin Creatinine Ratio, Urine (08/02/2022 10:59 AM CDT) Albumin Ur 59.6 mg/L CARRIE ELIAS Comment: Interpretive Data No reference range established. Current interpretive data was last revised 2018. Testing performed by: [address] [address] Creatinine Ur 64.9 mg/dL CARRIE ELIAS Comment: Interpretive Data No reference range established. Current interpretive data was last revised 2018. Testing performed by: [address] [address] Albumin Creatinine Ratio, Ur 92(H) 1 - 29 mg/g CARRIE ELIAS Comment:Testing performed by : [address] [address] Urine 08/02/2022 10:5 9 AM CDT 08/02/2022 11:20 AM CDT Eva WHELAN LAB URINE ORDERABLES Final Res ult CARRIE ELIAS [address] [facility] [place] [address] * Hepatitis C antibody (06/08/2021 9:45 AM CREDIT INVESTIGATOR) Hep C Ab Nonreactive Nonreactive CARRIE ELIAS [...] revised on 2019. Blood 06/08/2021 9:45 AM CREDIT INVESTIGATOR 06/08/2021 12:38 PM CREDIT INVESTIGATOR Zion Espinal MD LAB MICROBIOLOGY - G ENERAL ORDERABLES Final Result Performing Organization Address City/State/[facility] Co de Phone Number CARRIE [address] [facility] [place] [address] from Last 3 Months or Most Recently Relevant to Health Maintenance Insurance [facility] [address] [place] [phone] [facility] Care Teams Appeals Coordinator Relationship Specialty Start Date End Date Zion Espinal MD [address] [place] [address] PCP - General Family Medicine 08/27/18
--- OUTSIDE RECORDS SUMMARY | 2024-09-06 11:26 | XMS_ITS | Encounter Summary ---
Author Organization [facility] Care Team Providers Care Resource Development Manager Name Role Phone Zion Espinal MD Primary Care Provid er Zion Espinal MD Primary Care Provid er Zion Espinal MD Unavailable + [phone] Encounter Details Date Type Department Care Team (Latest Contact Info) Description 05/21/2016 Orders Only [facility] ProviderMarck MD [address] [place] [id number] Social History Tobacco Use Types Packs/Day Years Used Date Smoking Tobacco: Never Assessed Sex and Gender Information Value Date Recorded Sex Assigned at Not on file Legal Sex Male 7:48 PM TAILINGS MAN Gender Identity Not on file Sexual Orientation Not on file documented as of this encounter Plan of Treatment Not on file documented as of this encounter Procedures Procedure Name Priority Date/Time Associated Diagnosis Comments PROCEDURE - RESULT 05/21/2016 12 :00 AM TAILINGS MAN documented in this encounter Results * PROCEDURE - RESULT (05/21/2016 12:00 AM TAILINGS MAN) Narrative 05/21/2016 12:00 AM TAILINGS MAN Ordered by an unspecified provider. Historical Provider Final Res ult documented in [...] documented as of this encounter Care Teams Resource Development Manager Relationship Specialty Start Date End Date Zion Espinal MD [address] [place] [address] PCP - General Family Medicine 07/15/18 08/26/18 Zion Espinal MD [address] [place] [address] PCP - General Family Medicine 08/27/18 Zion Espinal MD [address] [place] [address] Family Medicine 08/27/18 04/04/19 documented as of this encounter
--- OUTSIDE RECORDS SUMMARY | 2024-09-06 11:26 | XMS_ITS | Encounter Summary ---
Author Organization [facility] Care Team Providers Care Senior Automation Engineer Name Role Phone Zion Espinal MD Primary Care Provid er Zion Espinal MD Primary Care Provid er Zion Espinal MD Unavailable + [phone] Encounter Details Date Type Department Care Team (Latest Contact Info) Description 07/04/2016 Orders Only [facility]INCON[facility] ProviderMarck MD [address] [place] [id number] Social History Tobacco Use Types Packs/Day Years Used Date Smoking Tobacco: Never Assessed Sex and Gender Information Value Date Recorded Sex Assigned at Not on file Legal Sex Male 7:48 PM [employer] Gender Identity Not on file Sexual Orientation Not on file documented as of this encounter Plan of Treatment Not on file documented as of this encounter Procedures Procedure Name Priority Date/Time Associated Diagnosis Comments PROCEDURE - RESULT 08/04/2017 12 :00 AM CDT documented in this encounter Results * PROCEDURE - RESULT (08/04/2017 12:00 AM CDT) Narrative 08/04/2017 12:00 AM CDT Ordered by an unspecified [...] documented as of this encounter Care Teams Senior Automation Engineer Relationship Specialty Start Date End Date Zion Espinal MD [address] [place] [address] PCP - General Family Medicine 07/15/18 08/26/18 Zion Espinal MD [address] [facility] [place] [address] PCP - General Family Medicine 08/27/18 Zion Espinal MD [address] [facility] [place] [place] [address] Family Medicine 08/27/18 04/04/19 documented as of this encounter
== END 2024-09-06 10:48 | disposition home or self-care (01) ==
DX: Z01.89 Encounter for other specified special examinations (principal); M87.88 Other osteonecrosis, other site
CPT/HCPCS: 73721